=== PATIENT | female | born 1975 | race Caucasian/White ===

== ENCOUNTER 2016-06-24 12:43 | Day surgery (SDC) | payer BC ==
[2016-06-24 13:17] VITALS: BP 147/70; PULSE 76; RESP 14; TEMP 97.6; O2SAT 97
[2016-06-24] MEDS ORDERED: SODIUM BICARBONATE 8.4% INJ 50 ML ONE (15:16)
[2016-06-24] MEDS ORDERED: LIDOCAINE HCL 1% 30 ML VIAL ONE (15:16)
--- NOTE | 2016-06-24 15:21 | RADRPT ---
EXAM DATE/TIME: 06/24/2016 13:15 [place] COMPARISON: No previous studies available for comparison. INDICATIONS : Mass within isthmus portion of thryoid. MEDICAL HISTORY : Thyroid nodule. Fatigue. SURGICAL HISTORY : None. ENCOUNTER: Initial ACUITY: 2 months PAIN SCORE: 1/10 LOCATION: Mid thyroid. Isthmus ORGAN: Right thyroid lobe isthmus. SPECIMENS: Three fine needle aspirate(s) submitted for pathologic evaluation. DEVICE: 22 gauge needle Post procedure scanning reveals no hematoma or other complication. The possibility does exist that the tissue obtained will be non-diagnostic. If the sample is non-diag nostic a repeat biopsy or surgical biopsy may need to be performed. TECHNIQUE: 1. Ultrasound guidance for needle biopsy. 2. Needle biopsy. The risks, benefits, and alternatives to ultrasound guided needle biopsy were explained to the patien t in detail including the risk of bleeding and infection. Written and verbal informed consent was ob tained. With the patient on the ultrasound table, images were obtained. Overlying skin was prepped and drape d in the usual sterile fashion and Lidocaine was utilized as a local anesthetic. A needle was advanced into the identified target and the number of specimens as above obtained and fraga bmitted for pathologic evaluation. The patient tolerated the procedure well and left the ultrasound suite in stable condition. CONCLUSION: Uncomplicated ultrasound guided needle biopsy. Bill Reyes MD on June 24, 2016 at 15:20 Board Certified Radiologist. This report was verified electronically.
== END 2016-06-24 14:00 | disposition home or self-care (01) ==
LOC: HRAD 12:43 → HRIP 12:46 → HRAD 14:00
PROVIDERS: ATTEND Family Medicine
DX: E04.1 Nontoxic single thyroid nodule (principal); R53.83 Other fatigue
CPT/HCPCS: 10022; 76942; 88172; 88173